=== PATIENT | female | born 1985 | race Caucasian/White ===

== ENCOUNTER 2017-01-09 08:13 | Day surgery (SDC) | payer BC, OTHER ==
[~2017-01-09 08:13] MED LIST: Sodium Chloride 0.9% 10 ML Syringe FLUSH PRN; Sodium Chloride 0.9% 2.5 ML Syringe FLUSH PRN
[2017-01-09] MEDS ORDERED: fentaNYL 100 MCG/2 ML SDV ONE ×2 (08:35→09:47)
[2017-01-09] MEDS ORDERED: Propofol 200 MG/20 ML SDV ONE (08:35)
[2017-01-09] MEDS ORDERED: Ondansetron 4 MG/2 ML SDV ONE (08:35)
[2017-01-09] MEDS ORDERED: Midazolam 1 MG/ML 2 ML SDV ONE (08:35)
[2017-01-09] MEDS ORDERED: Lactated Ringers 1,000 ML IV SCH (08:45)
--- NOTE | 2017-01-09 08:48 | PCM.PREANE ---
Preanesthetic Assessment - Anesthesia/Transfusion/Family Hx Anesthesia History: Prior Anesthesia Without Reaction Family History of Anesthesia Reaction: No Transfusion History: No Prior Transfusion(s) - Review of Systems General: No Symptoms Pulmonary: No Symptoms Cardiovascular: No Symptoms Gastrointestinal: No Symptoms Neurological: No Symptoms Other: Reports: None - Physical Assessment NPO Status Date: 01/08/17 Height: 1.7 m Weight: 76.204 kg ASA Class: 2 Mental Status: Alert & Oriented x3 Airway Class: Mallampati = 1 Dentition: Reports: Normal Dentition, [place](s) ( r central maxillary incisor) - Allergies Allergies/Adverse Reactions: Allergies Allergy/AdvReac Type Severity Reaction Status Date / Time No Known Allergies Allergy Verified 01/05/17 07:44 - Anesthesia Plan Pre-Op Medication Ordered: None - Acknowledgements Anesthesia Type Planned: General Anesthesia, MAC Pt an Appropriate Candidate for the Planned Anesthesia: Yes Alternatives and Risks of Anesthesia Discussed w Pt/Guardian: Yes Pt/Guardian Understands and Agrees with Anesthesia Plan: Yes PreAnesthesia Questionnaire HEENT History: Reports: Other (See Below) Other HEENT History: wears glasses Gastrointestinal History: Reports: None Genitourinary History: Reports: None 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: - Past Surgical History Head Surgeries/Procedures: Reports: None HEENT Surgical History: Reports: Tonsillectomy GI Surgical History: Reports: Cholecystectomy Female Surgical History: Reports: Breast Reduction Other Female Surgeries/Procedures: ETOP - SUBSTANCE USE Smoking Status *Q: Former Smoker Tobacco Use Within Last Twelve Months: No Recreational Drug Use History: No - HOME MEDS Home Medications: Home Meds Fexofenadine [Sherly] 1 tab PO ASDIRECTED PRN 01/05/17 [History] - CURRENT (IN HOUSE) MEDS Current Meds: Current Medications Lactated Ringer's (Ringers, Lactated) 1,000 mls @ 125 mls/hr IV ASDIRECTED ELANA Sodium Chloride (Saline Flush) 10 ml FLUSH ASDIRECTED PRN PRN Reason: Keep Vein Open Sodium Chloride (Saline Flush) 2.5 ml FLUSH ASDIRECTED PRN PRN Reason: Keep Vein Open Discontinued Medications Fentanyl (Sublimaze) Confirm Administered Dose 100 mcg .ROUTE .STK-MED ONE Stop: 01/09/17 08:36 Midazolam HCl (Versed 1 Mg/Ml) Confirm Administered Dose 2 mg .ROUTE .STK-MED ONE Stop: 01/09/17 08:36 Ondansetron HCl (Zofran) Confirm Administered Dose 4 mg .ROUTE .STK-MED ONE Stop: 01/09/17 08:36 Propofol (Diprivan 20 Ml) Confirm Administered Dose 200 mg .ROUTE .STK-MED ONE Stop: 01/09/17 08:36
[2017-01-09] MEDS ORDERED: Lidocaine 1% with EPINEPHrine 1:100,000 20 ML MDV ONE (09:11)
[2017-01-09] MEDS ORDERED: Ketorolac 30 MG/ML SDV ONE (09:40)
--- NOTE | 2017-01-09 10:17 | PCM.OPNOTE ---
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
--- NOTE | 2017-01-09 10:18 | PCM.POSTAN ---
POST ANESTHESIA ASSESSMENT - MENTAL STATUS Mental Status: Alert, Oriented - RESPIRATORY Respiratory Status: Respiratory Rate WNL, Airway Patent, O2 Saturation Stable - CARDIOVASCULAR CV Status: Pulse Rate WNL, Blood Pressure Stable - GASTROINTESTINAL GI Status: No Symptoms - POST OP HYDRATION Hydration Status: Adequate & Stable
--- NOTE | 2017-01-09 10:18 | PCM48HPAN ---
Post Anesthesia Note - EVALUATION WITHIN 48HRS OF ANESTHETIC Vital Signs in Normal Range: Yes Patient Participated in Evaluation: Yes Respiratory Function Stable: Yes Airway Patent: Yes Cardiovascular Function Stable: Yes Hydration Status Stable: Yes Pain Control Satisfactory: Yes Nausea and Vomiting Control Satisfactory: Yes Mental Status Recovered: Yes
--- NOTE | 2017-01-09 10:56 | OR ---
SURGEON: Charity Winslow M.D. DATE OF PROCEDURE: 01/09/2017 PREOPERATIVE DIAGNOSIS: RHODA II. POSTOPERATIVE DIAGNOSIS: RHODA II. PROCEDURE: Loop electrosurgical excision procedure of the cervix. METAL HARDENER: JOHNY Partida. ANESTHESIA: MAC. ESTIMATED BLOOD LOSS: 330 mL. FLUIDS: 800 mL crystalloid. COMPLICATIONS: None known. FINDINGS: RHODA II. DISPOSITION: The patient to PACU, stable. PROCEDURE IN DETAIL: Ellen is a 31-year-old female, who had recent colposcopy proven RHODA II. Therefore, at this juncture, I have advised proceeding with loop for further evaluation and treatment of the moderate dysplasia. Risks of the procedure have been discussed with her and proper consent was obtained. The patient was taken to the operating room, where she underwent MAC. She was placed in modified dorsal lithotomy position. She was prepped and draped in the usual manner. Time-out was performed. A coated-speculum was introduced in the vagina as well as sidewall retractors. The cervix was now prepped with Lugol solution followed by a cervical block using 1% lidocaine with epinephrine. Please see nurse's notes for total amount of local dispensed during the procedure. Using a 20 x 8 mm loop, an anterior lip of the cervix was excised followed by posterior lip, and a 5 mm endocervical hat was also excised. These specimens were sent to Pathology for further analysis. The wound bed was now cauterized with rollerball followed by Monsel's and pressure to obtain hemostasis. Hemostasis was found to be evident. The patient had tolerated the procedure well overall all. All instruments were removed from the vagina and specimens to pathology. MILENA / CARLOS /[id number]
[2017-01-09 11:23] VITALS: BP 107/65
== END 2017-01-09 11:06 | disposition home or self-care (01) ==
LOC: MW.SDS 08:13
PROVIDERS: ATTEND Obstetrics & Gynecology
PROC: 0UBC7ZZ Excision of Cervix, Via Natural or Artificial Opening (ICD-10-PCS; principal; 2017-01-09)
DX: N87.1 Moderate cervical dysplasia (principal); N87.0 Mild cervical dysplasia; F32.9 Major depressive disorder, single episode, unspecified; Z90.49 Acquired absence of other specified parts of digestive tract; Z98.890 Other specified postprocedural states; Z79.899 Other long term (current) drug therapy; Z87.891 Personal history of nicotine dependence
CPT/HCPCS: 36415; 57522; 84703; 85027; 88305; 88307; J1885; J2250; J2405; J3010; 00940; J2704